=== PATIENT | female | born 1940 | race Caucasian/White ===

== ENCOUNTER 2017-02-23 07:52 | Day surgery (SDC) | payer MEDICARE ==
[~2017-02-23] VITALS: Ht 165.1 cm; Wt 70.0 kg
[~2017-02-23 07:52] MED LIST: 0.9% Sodium Chloride 1,000 ML IV PRN; Sodium Chloride LOK Flush 10 mL Syringe IV PRN; fentaNYL-PF 50 mCg/mL 2 mL Inj IVPUSH PRN
[2017-02-23 08:17] VITALS: BP 143/74; PULSE 71; RESP 16; O2SAT 99
[2017-02-23] MEDS ORDERED: OMEP20CA11 PO (08:17)
[2017-02-23] MEDS ORDERED: LEVO25TA5 PO (08:17)
[2017-02-23 09:15] VITALS: BP 93/71; PULSE 65; RESP 14; O2SAT 98
[2017-02-23 09:38] VITALS: BP 116/69; PULSE 63; RESP 14; O2SAT 98
--- NOTE | 2017-02-23 09:39 | ENDO ---
[address] [address] ENDOSCOPY PROCEDURE PATIENT: ROSIBEL THEODORE : 1940 MR#: [id number] ADMIT: 02/23/2017 JOB ID: [id number] DATE OF SERVICE: 02/23/2017 PRIMARY PROVIDER: Vinny Chapman MD. PROCEDURE: Colonoscopy (incomplete exam). INDICATIONS: A 76-year-old female who reports for colon cancer screening. She reports a history of tiny polyps some 10 years ago. EQUIPMENT: PCF H 190 DL. SEDATION: 1. Versed 5 mg. 2. Fentanyl 125 mcg. COMPLICATIONS: None identified. BOWEL PREPARATION: Excellent distally. PROCEDURE INFORMATION: After the risks and benefits were explained, written and verbal informed consent was obtained. The patient was brought into the endoscopy suite and placed into the left lateral decubitus position. Sedation was achieved using the above-stated medications with the addition of oxygen via nasal cannula. Digital rectal examination was accomplished. Mild internal hemorrhoids were noted. The scope was introduced and advanced to somewhere around 50 cm. However, the patient had an exceptionally tortuous and redundant bowel. There was incredible looping of the scope and it would have been unsafe to push through some of these loops to attempt completion of cecal navigation. We therefore aborted after a considerable effort using different patient positions and applications of abdominal pressure. The scope was slowly withdrawn to carefully examine the distal mucosa for any defects or lesions. Multiple direct views were made through the dentate line. The colon was decompressed. The scope was removed from the patient who tolerated the procedure well in spite of our difficult views. FINDINGS: Incomplete examination as described above. Redundant loopy bowel. Diverticula were seen throughout the sigmoid region. Quite tortuous. No significant polyps or mass lesions in the left side. ENDOSCOPIC DIAGNOSES: 1. Incomplete cecal navigation. 2. Diverticulosis. 3. Redundant tortuous course. 4. Hemorrhoids. RECOMMENDATIONS: 1. The patient will be offered either barium enema or virtual colonography to complete the colon cancer screening experience. 2. No further conventional colonoscopy would be advised unless there are findings at barium or virtual.
== END 2017-02-23 23:59 | disposition home or self-care (01) ==
LOC: END 07:52
PROVIDERS: ATTEND Internal Medicine Gastroenterology
DX: Z12.11 Encounter for screening for malignant neoplasm of colon (principal); Z86.010 Personal history of colon polyps; Q43.8 Other specified congenital malformations of intestine; K57.30 Diverticulosis of large intestine without perforation or abscess without bleeding; K64.8 Other hemorrhoids; Z53.9 Procedure and treatment not carried out, unspecified reason; Z53.09 Procedure and treatment not carried out because of other contraindication
CPT/HCPCS: 99153; G0105; G0500; J2250; J3010; J7030